=== PATIENT | male | born 2000 | race Caucasian/White ===

== ENCOUNTER 2024-04-23 11:17 | Inpatient (IN) | payer BC ==
[~2024-04-23] VITALS: Ht 172.7 cm; Wt 85.7 kg
[2024-04-23] MEDS ORDERED: IV NS 0.9% 250 ML IV ONE (12:02)
[2024-04-23] MEDS ORDERED: IOHEXOL-300 100 ML VIAL IV ONE (12:02)
[2024-04-23] MEDS: MORPHINE SULFATE INJ 2 MG/ML DISP.SYRIN IV ONE (12:10)
[2024-04-23] MEDS ORDERED: ONDANSETRON HCL/PF 4 MG/2 ML VIAL ONE (12:11)
[2024-04-23] MEDS ORDERED: MORPHINE SULFATE INJ 4 MG/ML DISP.SYRIN ONE (12:11)
[2024-04-23] MEDS: IV NS 0.9% 1,000 ML BAG IV ONE (12:15)
[2024-04-23] MEDS: ONDANSETRON HCL/PF 4 MG/2 ML VIAL IVP ONE (12:17)
[2024-04-23 12:19] LABS: APPEARANCE,URINE CLEAR (CLEAR); BILIRUBIN,URINE NEGATIVE (NEGATIVE); BLOOD, URINE NEGATIVE Ery/uL (NEGATIVE); COLOR,URINE YELLOW (YELLOW); KETONES,URINE NEGATIVE (NEGATIVE); LEUKOCYTE ESTERASE ,URINE NEGATIVE (NEGATIVE); NITRITE, URINE NEGATIVE (NEGATIVE); PROTEIN,URINE NEGATIVE (NEGATIVE); UGLUCOSE NEGATIVE (NEGATIVE); UROBILINOGEN,URINE 0.2 EU/dL (0.2)
[2024-04-23 12:37] LABS: BASOPHILS # (AUTO) 0.1 K/uL (0.0-0.2); BASOPHILS % (AUTO) 0.5 % (0.0-2.0); EOSINOPHILS % (AUTO) 0.2 % (0.0-6.0); HEMATOCRIT 45 % (39-51); HEMOGLOBIN 15.3 g/dL (13.5-17.5); LYMPHOCYTES # (AUTO) 2.9 K/uL (0.8-4.8); LYMPHOCYTES % (AUTO) 15.4 % (20.0-44.0); MEAN CORPUSCULAR HEMOGLOBIN 32 PG (26.0-33.0); MEAN CORPUSCULAR HGB CONC 35 g/dl (31.0-36.0); MEAN CORPUSCULAR VOLUME 91 fL (80-96); MONOCYTES # (AUTO) 1.2 K/uL (0.1-1.30); MONOCYTES % (AUTO) 6.7 % (2.0-12.0); NEUTROPHILS # (AUTO) 14.4 K/uL (1.8-8.9); NEUTROPHILS % (AUTO) 77.2 % (43.0-81.0); PLATELET COUNT (AUTO) 358 K/uL (150-450); RED BLOOD CELL COUNT(AUTO) 4.87 MIL/uL (4.5-6.0); RED CELL DISTRIBUTION WIDTH 12.2 % (11.5-15.0); WHITE BLOOD COUNT (AUTO) 18.6 K/uL (4.3-11.0)
[2024-04-23 13:04] LABS: ALBUMIN 4.2 g/dL (3.4-5.0); BILIRUBIN,DIRECT 0.2 mg/dL (0.0-0.2); BILIRUBIN,TOTAL 0.7 mg/dL (0.2-1.0); CALCIUM, SERUM 9.5 mg/dL (8.5-10.1); CREATININE 1.1 mg/dL (0.6-1.3); POTASSIUM 4.1 mmol/L (3.5-5.1); TOTAL PROTEIN, SERUM 8.2 g/dL (6.4-8.2)
[2024-04-23] MEDS ORDERED: PIPERACI/TAZO 3.375GM/D5W 50ML PB IV ONE (13:32)
[2024-04-23] MEDS: PIPERACILLIN /TAZOBACTAM 3.375 G in IV D5W 50 ML IV ONE (13:35)
[2024-04-23] MEDS ORDERED: GUAN1TAB PO (15:31)
[2024-04-23] MEDS ORDERED: DEXT5TAB15 PO (15:31)
[2024-04-23] MEDS ORDERED: SERT25TA PO (15:31)
[2024-04-23 20:00] VITALS: BP 128/75; TEMP 99.7; O2SAT 98
[2024-04-23 20:20] VITALS: BP 128/75; TEMP 99.7; O2SAT 98
[2024-04-23] MEDS ORDERED: Z GUARD REMEDY 4 OZ OINT TP PRN (23:00)
[2024-04-23] MEDS ORDERED: ONDANSETRON HCL/PF 4 MG/2 ML VIAL IVP PRN (23:00)
[2024-04-23] MEDS: IV LR 1000 ML 1,000 ML IV SCH (23:38)
[2024-04-23 23:44] VITALS: BP 122/94; TEMP 98.8; O2SAT 98
[2024-04-23] MEDS: MORPHINE SULFATE INJ 4 MG/ML DISP.SYRIN IV PRN (23:46)
[2024-04-24] MEDS ORDERED: PIPERACILLIN /TAZOBACTAM 3.375 G in IV D5W 50 ML IV SCH
[2024-04-24] MEDS ORDERED: PIPERACI/TAZO 3.375GM/D5W 50ML PB IV ONE (04:05)
[2024-04-24] MEDS: PIPERACILLIN /TAZOBACTAM 3.375 G in IV D5W 50 ML IV SCH (05:37)
[2024-04-24 07:16] LABS: BASOPHILS % (AUTO) 0.1 % (0.0-2.0); EOSINOPHILS # (AUTO) 0.1 K/uL (0.0-0.7); EOSINOPHILS % (AUTO) 0.3 % (0.0-6.0); HEMATOCRIT 45 % (39-51); HEMOGLOBIN 15.1 g/dL (13.5-17.5); LYMPHOCYTES % (AUTO) 16.6 % (20.0-44.0); MEAN CORPUSCULAR HEMOGLOBIN 31 PG (26.0-33.0); MEAN CORPUSCULAR HGB CONC 34 g/dl (31.0-36.0); MEAN CORPUSCULAR VOLUME 92 fL (80-96); MONOCYTES # (AUTO) 1.6 K/uL (0.1-1.30); MONOCYTES % (AUTO) 8.7 % (2.0-12.0); NEUTROPHILS # (AUTO) 13.2 K/uL (1.8-8.9); NEUTROPHILS % (AUTO) 74.3 % (43.0-81.0); PLATELET COUNT (AUTO) 327 K/uL (150-450); RED BLOOD CELL COUNT(AUTO) 4.94 MIL/uL (4.5-6.0); RED CELL DISTRIBUTION WIDTH 12.4 % (11.5-15.0); WHITE BLOOD COUNT (AUTO) 17.8 K/uL (4.3-11.0)
[2024-04-24 07:44] LABS: CALCIUM, SERUM 8.9 mg/dL (8.5-10.1); POTASSIUM 3.9 mmol/L (3.5-5.1)
[2024-04-24 08:00] VITALS: BP 133/80; TEMP 99.9; O2SAT 95
[2024-04-24] MEDS: PANTOPRAZOLE 40 MG VIAL IV SCH (08:33)
[2024-04-24] MEDS: IV LR 1000 ML 1,000 ML IV PRN (10:08)
[2024-04-24] MEDS: PIPERACILLIN /TAZOBACTAM 3.375 G in IV D5W 100 ML IV SCH (12:56)
[2024-04-24] MEDS: ACETAMINOPHEN 325 MG TABLET PO PRN (15:20)
[2024-04-24 16:00] VITALS: BP 124/86; TEMP 99; O2SAT 98
[2024-04-24 20:00] VITALS: BP 119/85; TEMP 97.9; O2SAT 97
[2024-04-24] MEDS ORDERED: LIDOCAINE 1%-EPI 1:100,000 20 ML VIAL ONE (20:05)
[2024-04-24] MEDS ORDERED: ANESTHESIA TRAY IN PYXIS 1 EA TRAY MC ONE (20:05)
[2024-04-24] MEDS ORDERED: BUPIVACAINE 0.5 % PF 150 MG/30 ML VIAL ONE (20:05)
[2024-04-24] MEDS ORDERED: MIDAZOLAM HCL 2 MG/2ML VIAL ONE (20:06)
[2024-04-24] MEDS ORDERED: FENTANYL PF 250MCG/5ML AMPUL ONE (20:06)
[2024-04-24] MEDS ORDERED: ROCURONIUM BROMIDE 50 MG/5 ML ONE (20:07)
[2024-04-24 20:14] LABS: INR 1.07 (0.91-1.10); PARTIAL THROMBOPLASTIN TIME 29.2 SEC (24.3-34.3); PROTHROMBIN TIME 11.3 SECS (9.2-11.1)
[2024-04-24] MEDS ORDERED: HEMOSTATIC MATRIX 8 ML 1 EACH PAD MC ONE (21:06)
[2024-04-24] MEDS ORDERED: CELLULOSE,OXIDIZED 1 EA PACK MC ONE (21:06)
[2024-04-25 08:00] VITALS: BP 112/84; TEMP 98.8; O2SAT 97
[2024-04-25] MEDS: PANTOPRAZOLE 40 MG TABLET.DR PO SCH (08:27)
[2024-04-25 16:00] VITALS: BP 127/88; TEMP 98.4; O2SAT 98
[2024-04-25 20:00] VITALS: BP 138/98; TEMP 98.8; O2SAT 98
[2024-04-26 07:00] VITALS: BP 131/90; TEMP 98.4; O2SAT 98
[2024-04-26] MEDS ORDERED: AMOX-430 PO (10:58)
== END 2024-04-26 13:12 | disposition home or self-care (01) | DRG 399 ==
LOC: ER 11:17 → TELE 18:39 → MED 23:05
PROVIDERS: ADMIT Nurse Practitioner Acute Care; ATTEND Nurse Practitioner Acute Care
PROC: 0DTJ4ZZ Resection of Appendix, Percutaneous Endoscopic Approach (ICD-10-PCS; principal; 2024-04-24)
DX: K35.32 Acute appendicitis with perforation, localized peritonitis, and gangrene, without abscess (principal); F41.9 Anxiety disorder, unspecified; F90.9 Attention-deficit hyperactivity disorder, unspecified type; D72.829 Elevated white blood cell count, unspecified; K40.20 Bilateral inguinal hernia, without obstruction or gangrene, not specified as recurrent; K75.81 Nonalcoholic steatohepatitis (NASH)
CPT/HCPCS: 36415; 80048-TC; 80076-TC; 83690-TC; 83735-TC; 84100-TC; 85025-TC; 85610-TC; 85730-TC; 86850-TC; A4223; G0378; J0690; J1100; J1885; J2250; J2270; J2405; J2470; J2543; J2704; J3010; J3490; J7030; J7050; J7060; J7120; Q9967